=== PATIENT | female | born 1980 | race Caucasian/White ===

== ENCOUNTER 2024-11-15 09:29 | Emergency (ER) | payer BC, OTHER ==
[2024-11-15 09:37] VITALS: BP 127/83; PULSE 66; RESP 18; TEMP 98.6; BMI 25.8
[2024-11-15] MEDS ORDERED: IBUPROFEN 600 MG TABLET (FP) PO ONE (10:33)
[2024-11-15] MEDS: IBUPROFEN 600 MG TABLET (FP) PO ONE (10:37)
== END 2024-11-15 11:05 | disposition home or self-care (01) ==
LOC: FER 09:29
DX: S93.401A Sprain of unspecified ligament of right ankle, initial encounter (principal); W01.198A Fall on same level from slipping, tripping and stumbling with subsequent striking against other object, initial encounter
CPT/HCPCS: 73610-TC-RT-FY; 73630-TC-RT-FY; 99283-25